=== PATIENT | male | born 1995 ===

== ENCOUNTER 2025-07-06 09:38 | Inpatient (IN) | payer MEDICARE, MEDICAID ==
[~2025-07-06] VITALS: Ht 188 cm; Wt 119.5 kg
[2025-07-06 10:28] VITALS: BP 131/89
[2025-07-06] MEDS ORDERED: FLU VACC TS2025-26(6MOS UP)/PF 45 MCG/0.5 ML SYRINGE IM ONE (11:00)
[2025-07-06] MEDS ORDERED: Aluminum Hydroxide 320MG/5ML 473 ML PO PRN (11:00)
[2025-07-06] MEDS ORDERED: Polyethylene Glycol 3350 17 gm PO PRN (11:05)
[2025-07-06] MEDS ORDERED: Ondansetron 4 MG SoluTab MM PRN (11:05)
[2025-07-06 11:10] VITALS: BP 131/89
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
--- NOTE | 2025-07-06 17:58 | NUR ---
SHIFT SUMMARY: PT WAS MEDICATED AFTER ARRIVAL WITH PRN ZYPREXA PER EMAR FOR MASS SCORE OF 17. HE SPENT MUCH OF THE AFTERNOON RESTING IN HIS ROOM. HE USED THE PHONE IN THE EVENING AND THEN ATTENDED DINNER. PT MONITORED WITH Q 15 MIN CHECKS FOR SAFETY PER UNIT PROTOCOL.
--- NOTE | 2025-07-06 18:19 | NUR ---
DISCHARGE/CASEMANAGEMENT COMMUNICATION PT REQUESTED THAT I SPEAK WITH HIS MOTHER ON THE PHONE. MOTHER STATES THAT SHE IS CURRENTLY WORKING WITH THE DA IN FOR POSSIBLE PLACEMENT IN A [employer] FACILITY. SATES THAT PT IS NOT AWARE OF THIS. SHE STATES THAT HE HAS COURT IN ON Jul. STATES THAT PT COULD POSSIBLY RETURN TO HIS SISTER HOUSE THERE IF HE "MINDS HIS P'S AND Q'S" SHE WOULD LIKE CONTACT WITH [facility] CASEMANAGER TO COMMUNICATE INFORMATION AND PLANS. HER NAME IS RITO PHONE NUMBER [phone].
--- NOTE | 2025-07-07 04:17 | NUR ---
Patient stayed in his room most of the night leaving only to have a snack. When asked about whether he was still thinking about harming himself or suicide, the patient adamantly said yes, then stopped talking. He did tell the [facility] that he was not to be woken up for vital signs or to be touched in any way. He was shaking vigorously while his blood pressure was being taken. Will continue close monitoring every 15 minutes for comfort and safety per unit protocol.
[2025-07-07] MEDS ORDERED: Multivitamins 1 Tab PO SCH (09:00)
--- NOTE | 2025-07-07 11:16 | NUR ---
NURSE NOTE SPOKE TO PT'S MOTHER, RITO, ON THE PHONE. SHE ENSURED THIS RN THAT SHE DOES HAVE HIS OTHER BOOT. SHE ASKED IF SHE SHOULD SEND IT IN THE MAIL. THIS RN ADVISED AGAINST THAT, SINCE WE ARE ABLE TO ENSURE THAT IT WOULD NOT GET LOST OR DAMAGED. PT INFORMED OF THIS AND WAS AGAIN UPDATED ON THE BOOT SITUATION. INFORMED PT THAT WE HAVE SOME TIME TO PLAN ON D/C DETAILS SINCE HE ARRIVED YESTERDAY. PT CONTINUES TO BE SLIGHTLY ANXIOUS. HE IS NOW CONCERNED ABOUT WHERE HE IS GOING AT TIME OF D/C. MOTHER STATES PT IS NOT ABLE TO STAY WITH HER OR HIS SISTER ANY LONGER. SHE ALSO STATED THAT IF HE WAS TO BE D/C'D WITH MEDICATIONS HE COULD NOT BE TRUSTED WITH THEM AND WOULD TAKE THEM ALL AT ONCE. SHE STATED PT HAS A TENDENCY TO DO THIS.
--- NOTE | 2025-07-07 11:23 | NUR ---
DISCHARGE INFORMATION PT DOES NOT HAVE SHOES, ONE IS STILL IN DAY WITH HIS MOTHER. PT WEARS A SIZE 12 MENS.
[2025-07-07] MEDS ORDERED: LORazepam 2 MG/ML 1ML Injection IM ONE (12:05)
[2025-07-07] MEDS ORDERED: LORazepam 2 MG/ML 1ML Injection IM PRN (12:05)
[2025-07-07] MEDS ORDERED: DiphenhydrAMINE HCl 50 MG/ML 1ML Vial IM ONE (12:05)
[2025-07-07] MEDS ORDERED: DiphenhydrAMINE HCl 50 MG/ML 1ML Vial IM PRN (12:05)
--- NOTE | 2025-07-07 14:16 | NUR ---
NURSE NOTE PT ASKING FOR RN TO COME TO HIS ROOM. STATES HE IS SO UPSET HE CANNOT ARTICULATE THE RIGHT WORDS TO EXPRESS HIMSELF. HE INFORMS THIS RN THAT HE IS NOT FEELING LIKE THE MEDICATIONS ADMINISTERED ARE WORKING. AND INQUIRES WHEN HE CAN GET MORE. HE STATES HE DOESN'T THINK THIS FACILITY IS ABLE TO PROVIDE HIM WITH WHAT HE NEEDS. HE STATES HE IS STILL WORRIED THAT HE WILL NOT BE ABLE TO GET SHOES WHEN HE IS DISCHARGED. PT STATES THEN ASKING FOR MEDS WHEN AVAILABLE AGAIN. HE THEN ASKED THIS RN IF THIS FACILITY HAS "ASSISTED SUICIDE." THIS RN INFORMS HIM THAT WE DO NOT. PT THEN ASKS, "CAN YOU JUST FUCKING LEAVE NOW!" AFTER THIS RN LEFT HIS ROOM PT YELLS OUT "FUCK!" HE THEN COMES DOWN TO THE NURSES STATION, AGITATED AND ANGRY. PT YELLING OUT CURSE WORDS LOUDLY IN THE HALLWAY WHILE RICH ATTEMPTS TO DE-ESCALATE. PT AGREES TO SPEAK TO AUTHORIZATION SPECIALIST, AND THEY BOTH GO INTO THE SENSORY ROOM. PT CONTINUES TO HAVE OUTBURSTS AND HITTING FISTS ON SIDES OF CHAIR WHILE SCREAMING OCCASIONALLY.
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
--- NOTE | 2025-07-07 18:38 | NUR ---
NURSE NOTE PT CAME TO NURSE STATION C/O PAROXISMAL MOVEMENTS AND STATES HE KEEPS HAVING BUE AND BLE JERKING MOVEMENTS WHEN HE LIES DOWN TO REST. PT IS HAVING DIFFICULTY OPENEING HIS EYES AND ARTICULATING WORDS. PT STATES THIS RN GAVE HIM HALDOL. THIS RN INFORMED HIM HE RECIEVED BENADRYL AND ATIVAN. THEN HE STATES HE NEEDS AN ORDER FOR COGENTIN AND STATES THE BENADRYL GAVE HIM THE RESTLESSNESS. PT THEN GOT UPSET AND STARTED SARCASTICALLY YELLING ABOUT HOW HELPFUL THE STAFF IS HE AMBULATED TO HIS ROOM.
[2025-07-07 20:40] VITALS: BP 145/98
--- NOTE | 2025-07-07 22:09 | NUR ---
PT REFUSES TO INTERACT WITH STAFF OR PARTICIPATE IN MILIEU. PULLED MATTRESS OFF BED AND PUT IT ON FLOOR. DOES NOT WANT STAFF TO DISTURB HIM. ASKED FOR EXTRA MILK AFTER SNACK AND STATED "NOW I'LL LEAVE YOU ALONE." CURRENTLY SLEEPING IN BED.
--- NOTE | 2025-07-08 00:38 | NUR ---
ASSUMPTION OF CARE ASSUMED CARE OF PATIENT FROM KESHIA GONZALES AT 2340. HE IS CURRENTLY RESTING QUIETLY IN HIS BED. NO SIGNS OF ACUTE DISTRESS NOTED. HE RECEIVED TO FOLLOWING PRN MEDICATIONS PRIOR IN THE SHIFT: MELATONIN 3MG FOR SLEEP AT 2043 AND TRAZADONE 50MG FOR SLEEP AT 2043.
--- NOTE | 2025-07-08 04:56 | NUR ---
END OF SHIFT SUMMARY PATIENT HAS SLEPT SINCE THIS CARPET SEWER ASSUMED CARE AT 2345. NO PRN MEDICATIONS WERE UTILIZED. PATIENT DOES NOT SEEM TO BE IN ANY ACUTE DISTRESS. THEY CONTINUES TO BE MONITORED EVERY 15 MINUTES FOR WELLNESS AND SAFETY AND EVERY 4 HOURS FOR SI SAFETY AND MITIGATION.
[2025-07-08 09:05] VITALS: BP 116/102
--- NOTE | 2025-07-08 12:32 | NUR ---
MID SHIFT SUMMARY PT A/O X2 AND AGITATED. PT STATES THAT HE IS ALWAYS SUICIDAL AND WANTS TO OD ON FENTANYL. PT ALSO ENDORSES AH AND VH BUT WILL NOT DISCLOSE WHAT HE IS HEARING AND SEEING. HE DESCRIBES HIS MOOD DEPRESSED AND ANXIOUS. PRN MEDICATIONS GIVEN PER EMR. SEE PRIOR MASS SCORES.
--- NOTE | 2025-07-08 13:25 | NUR ---
NURSE NOTE PT WAS SPEAKING LOUDLY TO KESHIA SHANKS. GETTING EXTREMELY AGITATED AND PACING IN FRONT OF THE RN STATION. CONTINUOUSLY ARGUING WITH D/C PLAN AND OPTIONS PT HAS FOR D/C. PT CONTINUOUSLY REQUESTING FROM MULTIPLE RN'S TO USE THE PHONE AND HE IS TOLD AT 4 PM AT PHONE TIME HE CAN USE THE PHONE. PT QUICKLY GOT AGITATED AND YELLED OUT PROFANITIES AT RN'S, HE GRABS A PLASTIC CHAIR THAT IS IN THE HALLWAY AND FORCEFULLY THROWS IT AT THE WINDOW OF THE SENSORY ROOM, THAT HAD A PATIENT AND KESHIA ANTOINE INSIDE. PT YELLED OUT A LOUD GROWL SOUND WHEN HE THREW IT, AND THEN HE STOMPED DOWN THE HALLWAY. PT DEMANDING TO LEAVE THE FACILITY. HE WAS INFORMED THAT HE WOULD HAVE TO LEAVE AMA AND HE WOULD BE DISCHARGED TO THE STREET BECAUSE D/C PLANNING WAS NOT COMPLETE. HE STATES "THAT'S WHAT I FUCKING WANT! GIVE ME MY FUCKING CLOTHES AND THINGS!" SECURITY CALLED TO THE UNIT. PT BELONGINGS GIVEN BACK TO PT, HE CHANGED HIMSELF IN THE BATHROOM AND BELONINGS OUT OF THE SAFE WERE GIVEN BACK TO PT. HE AGREED TO SIGN BELONGINGS FORM. AMA FORM SIGNED BY TWO RN'S. PT WAS PROVIDED WITH A BACKPACK WITH SOME FINGER FOODS AND A BOTTLE OF WATER. HE WAS PROVIDED WITH A NEW PAIR OF SHOES AND HIS SINGLE BOOT. PT LEFT THE BOOT EVEN AFTER BEING INFORMED THAT IT WOULD BE THROWN AWAY AND HE STATES "I DON'T CARE, WHAT THE FUCK AM I GOING TO DO WITH ONE FUCKING BOOT?" PT VERBALLLY TOLD OF THE RISKS OF LEAVING BEFORE D/C PLAN COMPLETE, AND HE STATES "I DON'T CARE I JUST WANT TO FUCKING LEAVE." PT ESCORTED OUT TO PARKING LOT BY [employer]EY HOOKS AND TWO [employer] [address]ERSON[address]. DR. GUPTA NOTIFIED.
== END 2025-07-08 13:37 | disposition left against medical advice (07) | DRG 885 ==
LOC: BHU 09:38
PROVIDERS: ADMIT Psychiatry & Neurology Psychiatry
DX: F31.13 Bipolar disorder, current episode manic without psychotic features, severe (principal); R45.851 Suicidal ideations; F15.20 Other stimulant dependence, uncomplicated; F31.4 Bipolar disorder, current episode depressed, severe, without psychotic features; Z79.899 Other long term (current) drug therapy; Z79.1 Long term (current) use of non-steroidal anti-inflammatories (NSAID); Z28.21 Immunization not carried out because of patient refusal
CPT/HCPCS: A9270; J1200; J2060

== ENCOUNTER 2025-07-16 04:56 | Emergency (ER) | payer MEDICARE, MEDICAID ==
[~2025-07-16] VITALS: Ht 188 cm; Wt 108.9 kg
== END 2025-07-16 05:23 | disposition home or self-care (01) ==
LOC: ER 04:56
DX: F41.9 Anxiety disorder, unspecified (principal); F15.10 Other stimulant abuse, uncomplicated; Z88.8 Allergy status to other drugs, medicaments and biological substances
CPT/HCPCS: 99283; A9270